=== PATIENT | female | born 1970 | race Caucasian/White ===

== ENCOUNTER → 2020-09-23 | Day surgery (SDC) | payer BC ==
--- NOTE | 2020-09-24 11:52 | RAD REPORT ---
EXAM DESCRIPTION: US - Breast Core BX w/US Guidance - 09/23/2020 12:26 pm CLINICAL HISTORY: INCONCLUSIVE MAMMOPalpable mass with corresponding ultrasound abnormality upper ou ter quadrant right breast. COMPARISON: Mammogram and ultrasound studies September 13, 2020 TECHNIQUE: The patient presents for ultrasound-guided biopsy of a previously detailed upper-outer qu adrant right breast mass. The ultrasound-guided core biopsy procedure, risks and alternatives were discussed with the patient i n detail. After answering all questions, both oral and written consent were obtained. Time out proced ure was performed. The patient had no contraindicated allergy or medication history. Preliminary imaging identified the right upper quadrant mass. The right breast was prepped and draped in the usual sterile fashion. From a medial approach, skin and deeper tissues were anesthetized with 1% lidocaine. Under direct sonographic visualization a 14 gauge vacuum assisted core biopsy needle w as advanced and placed at the margin of the mass. The mass was difficult to localize due to the densi ty of the surrounding glandular elements in the general mobility of the small 7 mm mass. There were a total of 3 core biopsies obtained under direct sonographic guidance. The mass did appear to have dis tortion in contour supporting transit of the biopsy needle through the small mass. At the conclusion of the procedure a localization clip was placed under sonographic guidance. Due to the dense surrounding glandular tissue the clip was placed just medial to the mass. Post biopsy imaging showed no hematoma or measurable bleeding within the breast. Hemostasis was obtai cassandra at the skin site with a sterile bandage placed. Post procedure care and precaution instructions were given to the patient. IMPRESSION: 1. Ultrasound-guided core biopsy was performed of the upper outer quadrant right breast mass. All obtained material was given to pathology for histologic assessment. 2. Post biopsy localization clip was placed under ultrasound guidance. 3. The biopsy was technically challenging due to the small size, mass mobility and density of surroun ding glandular elements. This creates the possibility of tissue sampling error. If the final patholog y report does not show fibroadenoma or other definitively benign etiology for the presence of a mass, a repeat ultrasound guided biopsy or surgical excisional biopsy would be recommended.
== END ==
LOC: DS 11:00
PROVIDERS: ATTEND Obstetrics & Gynecology
DX: N64.89 Other specified disorders of breast (principal); R92.2 Inconclusive mammogram
CPT/HCPCS: 19083; 88305